=== PATIENT | male | born 1985 | race Caucasian/White ===

== ENCOUNTER 2019-09-18 14:03 | Emergency (ER) | payer OTHER | END 2019-09-18 18:13 | disposition other institution (70) | LOC: ED 14:03 | DX: Z02.89 Encounter for other administrative examinations (principal) ==

== ENCOUNTER 2019-09-18 14:03 | Emergency (ER) | payer OTHER ==
[~2019-09-18] VITALS: Ht 162.6 cm; Wt 81.6 kg
[2019-09-18 14:06] VITALS: Ht 162.6 cm; Wt 81.6 kg
[2019-09-18 15:24] LABS: BASOPHIL % 0.9 % (0-2)
[2019-09-18 15:25] LABS: PLATELET COUNT 481 x10^3mcL (130-400); RED CELL DISTRIBUTION WIDTH 14.6 % (11.5-14.5)
[2019-09-18 15:38] LABS: BILIRUBIN TOTAL 0.4 mg/dL (0.20-1.00); CALCIUM 8.5 mg/dL (8.5-10.1); CARBON DIOXIDE 28.7 mmol/L (21-32); CREATININE SERUM 1.8 mg/dL (0.7-1.3); POTASSIUM SERUM 4.5 mmol/L (3.5-5.1); TOTAL PROTEIN, SERUM 8.1 g/dL (6.4-8.2)
[2019-09-18 15:42] LABS: ALBUMIN 2.2 g/dL (3.4-5.0)
[2019-09-18 18:12] VITALS: BP 114/56
== END 2019-09-18 18:13 | disposition other institution (70) ==
LOC: ED 14:03
PROVIDERS: Emergency Medicine
DX: E11.621 Type 2 diabetes mellitus with foot ulcer (principal); I10 Essential (primary) hypertension
CPT/HCPCS: 82962; J0696; J1815; J7030; J7060